=== PATIENT | female | born 1960 | race Two or more races ===

== ENCOUNTER 2020-12-15 11:16 | Inpatient (IN) | payer OTHER ==
[~2020-12-15] VITALS: Ht 162.6 cm; Wt 64.4 kg
[2020-12-15] MEDS ORDERED: VASOTEC2.5 MG (11:32)
[2020-12-15] MEDS ORDERED: ADULT LOW DOSE81 M1 (11:32)
[2020-12-15] MEDS ORDERED: ISOSORBIDE MONO60 MG (11:32)
[2020-12-15] MEDS ORDERED: CARVEDILOL3.125 MG (11:33)
[2020-12-15] MEDS ORDERED: NEURONTIN800 MG (11:33)
[2020-12-26] MEDS ORDERED: LEVOFLOXACIN750 MG PO (14:26)
[2020-12-26] MEDS ORDERED: INTESTINEX680 M1 PO (14:26)
[2020-12-26] MEDS ORDERED: CARAFATE1 GM PO (14:27)
[2020-12-26] MEDS ORDERED: ZOFRAN8 MG PO (14:27)
== END 2020-12-26 16:31 | disposition home or self-care (01) | DRG 392 ==
LOC: ER 11:16 → SURG 18:49 → SURH 12-21 17:11
PROVIDERS: ADMIT Surgery; ATTEND Surgery
PROC: BW21ZZZ Computerized Tomography (CT Scan) of Abdomen and Pelvis (ICD-10-PCS; principal; 2020-12-23)
DX: K57.20 Diverticulitis of large intestine with perforation and abscess without bleeding (principal); K59.09 Other constipation; Z20.822 Contact with and (suspected) exposure to COVID-19; I10 Essential (primary) hypertension; E11.9 Type 2 diabetes mellitus without complications; Z79.4 Long term (current) use of insulin; M06.8A Other specified rheumatoid arthritis, other specified site

== ENCOUNTER 2021-04-28 10:45 | Inpatient (IN) | payer OTHER ==
[~2021-04-28] VITALS: Ht 162.6 cm; Wt 145.6 kg
[~2021-04-28 10:45] MED LIST: ADULT LOW DOSE81 M1; CARAFATE1 GM PO; CARVEDILOL3.125 MG; INTESTINEX680 M1 PO; ISOSORBIDE MONO60 MG; LEVOFLOXACIN750 MG PO; NEURONTIN800 MG; VASOTEC2.5 MG; ZOFRAN8 MG PO
[2021-05-01] MEDS ORDERED: SUCRALFATE1 GM (08:15)
[2021-05-01] MEDS ORDERED: FAMOTIDINE20 MG (08:15)
[2021-05-01] MEDS ORDERED: VITAMIN D31250 MCG (08:15)
[2021-05-01] MEDS ORDERED: IBANDRONATE SO150 MG (08:16)
[2021-05-01] MEDS ORDERED: ROSUVASTATIN CA40 MG (08:16)
[2021-05-01] MEDS ORDERED: ISOSORBIDE MONO30 M2 (08:16)
[2021-05-01] MEDS ORDERED: ABATINEX680 MG (08:16)
[2021-05-01] MEDS ORDERED: FLONASE16 GM (08:17)
[2021-05-01] MEDS ORDERED: DICLOFENAC SOD100 MG (08:17)
[2021-05-03] MEDS ORDERED: INTESTINEX680 M1 PO (11:19)
[2021-05-03] MEDS ORDERED: PERCOCET 5-3251 EACH PO (11:20)
[2021-05-03] MEDS ORDERED: LEVSIN/SL0.125 MG SL (11:20)
== END 2021-05-03 13:38 | disposition home or self-care (01) | DRG 329 ==
LOC: SURH 05-01 05:00 → O/R 05-01 05:00 → SURH 05-01 07:15
PROVIDERS: ADMIT Surgery; ATTEND Surgery
PROC: 0DBP4ZZ Excision of Rectum, Percutaneous Endoscopic Approach (ICD-10-PCS; 2021-05-01)
PROC: 0DTJ4ZZ Resection of Appendix, Percutaneous Endoscopic Approach (ICD-10-PCS; 2021-05-01)
PROC: 0DJD8ZZ Inspection of Lower Intestinal Tract, Via Natural or Artificial Opening Endoscopic (ICD-10-PCS; 2021-05-01)
PROC: 0DTN4ZZ Resection of Sigmoid Colon, Percutaneous Endoscopic Approach (ICD-10-PCS; principal; 2021-05-01 07:15)
DX: K57.20 Diverticulitis of large intestine with perforation and abscess without bleeding (principal); K35.33 Acute appendicitis with perforation, localized peritonitis, and gangrene, with abscess; K59.01 Slow transit constipation; R10.9 Unspecified abdominal pain; Z20.822 Contact with and (suspected) exposure to COVID-19; E11.9 Type 2 diabetes mellitus without complications; Z79.4 Long term (current) use of insulin